=== PATIENT | female | born 2005 | race Caucasian/White ===

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

== ENCOUNTER 2025-07-24 12:18 | Emergency (ER) | payer BC, OTHER ==
[~2025-07-24] VITALS: Ht 160 cm; Wt 72.3 kg
--- NOTE | 2025-07-24 12:36 | ED.PDOC ---
Ayleen. trauma (HPI) HPI Comments This is a 20 year old female presenting to the ED with chief complaint of back pain. Patient reports that she had been hiking at work when she slipped and fell onto her back about an hour ago. Patient relays that she then felt a pop in her back, now experiencing pain in her lower back that radiates upward. Patient d enies any numbness, weakness, or tingling at this time. Chief Complaint: Back Pain Time Seen by MD: 12:31 Primary Care Provider: NONE Reviewed notes: Nurses Notes, Medications, Allergies Allergies: Coded Allergies: NO KNOWN ALLERGIES (Unverified , 01/31/23) Home Meds Active Scripts Ibuprofen (Ibuprofen) 600 Mg Tab, 1 TAB PO TID, #30 TAB Prov:DANTE BROOKS 04/27/23 Ondansetron Odt 4MG Tab (ZOFRAN PO) 4 Mg Tb, 4 MG PO Q8HP PRN, #14 TAB ODT TAB-DISSOLVE IN MOUTH, THEN SWALLOW Prov:MAYELIN CORREA MD 02/01/23 Naproxen (NAPROSYN TABLET) 500 Mg Tb, 1 TAB PO BID PRN, #20 TAB 1 Refill Prov:MAYELIN CORREA MD 02/01/23 Information Source: Patient Mode of Arrival: Ambulatory Severity: Moderate Timing: Hours Duration: Since onset Prehospital treatment: None Location: Back Mechanism: Fall Past Medical History PAST MEDICAL HISTORY: Denies Surgical History: Denies all surgeries PUBLIC AFFAIRS SPECIALIST History: No Pertinent PUBLIC AFFAIRS SPECIALIST History Family History Family History: Reviewed,noncontributory to illness Social History Smoker: Non-Smoker Alcohol: Denies ETOH Use Drugs: Denies Drug Use Lives In: Home Constitutional: denies: chills, diaphoresis, fatigue, fever, malaise, sweats, weakness, others EENTM: denies: blurred vision, double vision, ear bleeding, ear discharge, ear drainage, ear pain, ear ringing, eye pain, eye redness, hearing loss, mouth pain, mouth swelling, nasal discharge, nose bleeding, nose congestion, nose pain, photophobia, tearing, throat pain, throat swelling, voice changes, others Respiratory: denies: cough, hemoptysis, orthopnea, SOB at rest, shortness of breath, SOB with excertion, stridor, wheezing, others Cardiovascular: denies: chest pain, dizzy spells, diaphoresis, Dyspnea on exertion, edema, irregular heart beat, left arm pain, lightheadedness, palpitati ons, PND, syncope, others Gastrointestinal: denies: abdomen distended, abdominal pain, blood streaked bowels, constipated, diarrhea, dysphagia, difficulty swallowing, hematemesis, melena, nausea, poor appetite, poor fluid intake, rectal bleeding, rectal pain, vomiting, others Genitourinary: denies: abnormal vagina bleeding, burning, dyspareunia, dysuria, flank pain, frequency, hematuria, incontinence, pain, , vagina discharge, urgency, others Neurological: denies: dizziness, fainting, headache, left sided numbness, left sided weakness, numbness, paresthesia, pre-existing deficit, right sided numbness, right sided weakness, seizure, speech problems, tingling, tremors, weakness, others Musculoskeletal: reports: back pain; denies: gout, joint pain, joint swelling, muscle pain, muscle stiffness, neck pain, others Integumetry: denies: bruises, change in color, change in hair/nails, dryness, laceration, lesions, lumps, rash, wounds, others Allergic/Immunocompromised: denies: Difficulty Healing, Frequent Infections, Hives, Itching, others Hematologic/Lymphatic: denies: anemia, blood clots, easy bleeding, easy bruising, swollen glands, others Endocrine: denies: excessive hunger, excessive sweating, excessive thirst, excessive urination, flushing, intolerance to cold, intolerance to heat, unexplained weight gain, unexplained weight loss, others Psychiatric: denies: anxiety, bipolar disorder, depression, hopeless, panic dis order, schizophrenia, sleepless, suicidal, others All Other Systems: Reviewed and Negative Physical Exam General Appearance: No Apparent Distress, Normal HEENT: Normal ENT Inspection, Pharynx Normal, TMs Normal Neck: Full Range of Motion, Non-Tender, Normal, Normal Inspection Respiratory: Chest Non-Tender, Lungs Clear, No Accessory Muscle Use, No Respiratory Distress, Normal Breath Sounds Cardiovascular: No Edema, No JVD, No Murmur, No Gallop, Normal Peripheral Pulses, Regular Rate/Rhythm Breast Exam: Deferred Gastrointestinal: No Organomegaly, Non Tender, No Pulsatile Mass, Normal Bowel Sounds, Soft Genitalia: Deferred Pelvic: Deferred Rectal: Deferred Extremities: No calf tenderness, Normal capillary refill, Normal inspection, Normal range of motion, Non-tender, No pedal edema Musculoskeletal : Location: Bilateral Extremity Location: Back Apperance: Tenderness (Lower midline L-spine tenderness. Bilateral lumbar paraspinal tenderness. No step-offs.) Neurologic: Alert, material inspector II-XII nml as Tested, No Motor Deficits, Normal Affect, Normal Mood, No Sensory Deficits Cerebellar Function: Normal Reflexes: Normal Skin: Dry, Normal Color, Warm Lymphatic: No Adenopathy Was a procedure done? Was a procedure done?: No Differential Diagnosis Multiple Trauma: Fractures, Other (Back Muscle Spasm) X-Ray, Labs, Meds, VS Vital Signs Date Time Temp Pulse Resp B/P (MAP) Pulse Ox O2 Delivery O2 Flow Rate FiO2 07/24/25 13:04 97.9 07/24/25 12:54 97.9 76 15 111/64 (80) 98 97.9 07/24/25 12:20 97.8 83 15 112/71 99 97.8 Current Medications Medications (Trade) Dose Ordered Sig/Sheila Route Start Time Stop Time Status Last Admin Acetaminophen (Tylenol Tablet Or Capsule) 1,000 mg ONCE ONCE PO 07/24/25 12:30 07/24/25 12:31 DC 07/24/25 13:04 Lidocaine (Lidoderm 5% Topical Patch) 1 patch ONCE ONCE TOP 07/24/25 12:30 07/24/25 12:31 DC 07/24/25 13:04 Ketorolac Tromethamine (Toradol Injection) 30 mg ONCE ONCE IM 07/24/25 12:30 07/24/25 12:31 DC 07/24/25 13:03 Time of 1ST Reevaluation: 13:31 Reevaluation 1ST: Unchanged Time of 2ND Reevaluation: 15:01 Reevaluation 2ND: Improved Patient Education/Counseling: Diagnosis, Treatment Family Education/Counseling: No Family Present Departure 1 Departure Time of Disposition: 12:59 (20-year-old female presenting for evaluation of lower back pain after she had a ground level fall injuring her back. Given the mechanism x-rays of lumbar spine were performed which are negative for any underlying fractures. Patient is ambulating steadily here, no numbness, weakness of the lower extremities, no signs concerning for any acute lumbar spine cord compromise. Patient was given IM Toradol, oral Tylenol and topical lidocaine patch for analgesia. She is stable for discharge given negative imaging. Advised to take NSAIDs as needed for discomfort.) Impression: Primary Impression: Low back pain Additional Impressions: Lumbar paraspinal muscle spasm Ground-level fall Blunt trauma Disposition: HOME / SELF CARE / HOMELESS Condition: Stable Additional Instructions: You were evaluated today after a fall. Your x-ray shows no evidence of any broken bones. You may start taking Tylenol and ibuprofen 3 times a day over the upcoming days. Follow up with your primary care doctor if your pain persists despite taken Tylenol and ibuprofen. e-Prescriptions Ibuprofen Micronized (Ibuprofen) 600 Mg Tab 600 MG PO TID for 10 Days, #30 TAB Prov: SADE MCMAHON MD 07/24/25 Acetaminophen (Acetaminophen Extra Stren) 500 Mg Tab 1000 MG PO TID for 10 Days, #60 TAB Prov: SADE MCMAHON MD 07/24/25 Discharged With: Self Critical Care Note Critical Care Time?: No Stability Stability form required: No Heart Score Heart Score: Heart Score Response (Comments) Value History N/A 0 EKG N/A 0 Age N/A 0 Risk Factors N/A 0 Troponin N/A 0 Total 0 I personally scribed for SADE MCMAHON MD ([email or web address]) on 07/24/25 at 12:36. Electronically submitted by Dre High ([email or web address]). SADE MCMAHON MD Jul 24, 2025 12:36
[2025-07-24] MEDS: KETOROLAC TROMETH 60MG/2ML VIAL IM ONE (13:03)
[2025-07-24] MEDS: ACETAMINOPHEN 500 MG TAB or CAP PO ONE (13:04)
[2025-07-24] MEDS: LIDOCAINE 5% TOPICAL PATCH TOP ONE (13:04)
--- NOTE | 2025-07-24 14:45 | DVH ---
INDICATION: LBP after fall while hiking TECHNIQUE: 4 views of the lumbar spine were obtained. COMPARISON: None FINDINGS: There are no acute fractures or subluxations. Marked fecal residue seen throughout the colon. Normal sacroiliac joints. IMPRESSION: 1. No acute fracture or subluxation.
[2025-07-24] MEDS ORDERED: ACET-6 PO (15:04)
[2025-07-24] MEDS ORDERED: IBUP1TAB5 PO (15:04)
[2025-07-24 15:36] VITALS: BP 104/67; PULSE 74; RESP 15; TEMP 97.9; O2SAT 98
== END 2025-07-24 15:25 | disposition home or self-care (01) ==
LOC: ER 12:18
DX: M54.50 Low back pain, unspecified (principal); M62.830 Muscle spasm of back; W18.30XA Fall on same level, unspecified, initial encounter; Y93.01 Activity, walking, marching and hiking; Y92.89 Other specified places as the place of occurrence of the external cause; Y99.8 Other external cause status
CPT/HCPCS: 72110; 96372; 99283; J1885